=== PATIENT | male | born 1970 | race Caucasian/White ===

== ENCOUNTER 2021-07-07 10:59 | Emergency (ER) | payer SELFPAY ==
[~2021-07-07] VITALS: Ht 165.1 cm; Wt 80.3 kg
[~2021-07-07 10:59] MED LIST: LORTTAB5 PO; PRILOSEC PO
[2021-07-07] MEDS ORDERED: FAMO10TA53 PO (11:06)
[2021-07-07] MEDS ORDERED: ONDANSETRON 4MG/2ML VIAL IV ONE (12:50)
[2021-07-07] MEDS ORDERED: KETOROLAC 30 MG/ML 1ML VIAL IV ONE (12:50)
[2021-07-07 13:29] LABS: BASO # 0.1 10^3/uL (0.0-0.2); BASO % 0.6 % (0.0-1.0); EOS # 0.1 10^3/uL (0.0-0.5); EOS % 1.3 % (0.0-3.0); HEMATOCRIT 46.1 % (42.0-52.0); HEMOGLOBIN 15.4 g/dl (13.5-17.5); LYMPH # 1.3 10^3/uL (1.5-5.0); LYMPH % 13.6 % (24.0-44.0); MEAN CORPUSCULAR HEMOGLOBIN 27.6 pg (27.0-33.0); MEAN CORPUSCULAR HGB CONC 33.4 g/dl (32.0-36.5); MEAN CORPUSCULAR VOLUME 82.8 fl (80.0-96.0); MONO # 0.9 10^3/uL (0.0-0.8); MONO % 9.2 % (2.0-8.0); NEUTROPHILS # 7.1 10^3/uL (1.5-8.5); PLATELET COUNT, AUTOMATED 323 10^3/uL (150-450); RED BLOOD COUNT 5.57 10^6/uL (4.30-6.10); WHITE BLOOD COUNT 9.5 10^3/uL (4.0-10.0)
[2021-07-07 13:57] LABS: ERYTHROCYTE SEDIMENTATION RATE 2 mm/hr (0-20)
[2021-07-07 14:00] LABS: ALBUMIN 4.1 GM/DL (3.2-5.2); ALT/SGPT 34 U/L (12-78); BILIRUBIN,DIRECT 0.1 MG/DL (0.0-0.2); BILIRUBIN,TOTAL 0.6 MG/DL (0.2-1.0); BLOOD UREA NITROGEN 17 MG/DL (7-18); CALCIUM LEVEL 9.8 MG/DL (8.5-10.1); CARBON DIOXIDE LEVEL 27 MEQ/L (21-32); CHLORIDE LEVEL 108 MEQ/L (98-107); CREATININE FOR GFR 0.92 MG/DL (0.70-1.30); GLOMERULAR FILTRATION RATE > 60.0 (>56); GLUCOSE, FASTING 80 MG/DL (70-100); LIPASE 203 U/L (73-393); POTASSIUM SERUM 3.9 MEQ/L (3.5-5.1); SODIUM LEVEL 141 MEQ/L (136-145); TOTAL PROTEIN 7.4 GM/DL (6.4-8.2)
[2021-07-07] MEDS ORDERED: ISOVUE-370 76% 100ML VIAL As Ordered ONE (14:33)
[2021-07-07] MEDS ORDERED: ONDA4TAB6 PO (15:55)
[2021-07-07] MEDS ORDERED: KETO10TAB PO (16:03)
[2021-07-07 16:32] VITALS: BP 123/81
== END 2021-07-07 16:39 | disposition home or self-care (01) ==
LOC: M ED 10:59
DX: K86.9 Disease of pancreas, unspecified (principal); R10.9 Unspecified abdominal pain; R11.0 Nausea
CPT/HCPCS: 74177; 80048; 80076; 83690; 85025; 85652; 86140; 96374; 96375; 99284; J1885; J2405; Q9967

== ENCOUNTER → 2021-09-20 | Outpatient (CLI) | payer OTHER, SELFPAY ==
[~2021-09-20] MED LIST changes: +FAMO10TA53 PO; +KETO10TAB PO; +NAPR-885 PO; +OMEP40CA5 PO; +ONDA4TAB6 PO
== END ==
LOC: M LABSMTC 09:09
PROVIDERS: ATTEND Anesthesiology
DX: Z01.812 Encounter for preprocedural laboratory examination (principal)

== ENCOUNTER 2021-09-24 08:32 | Day surgery (SDC) | payer OTHER ==
[~2021-09-24] VITALS: Ht 172.7 cm; Wt 82.6 kg
[~2021-09-24 08:32] MED LIST changes: +NS 1,000 ML IV ONE
[2021-09-24] MEDS ORDERED: fentaNYL 100 MCG/2 ML INJECTION As Ordered ONE (09:08)
[2021-09-24] MEDS ORDERED: propofoL 200 MG/20 ML VIAL As Ordered ONE (09:36)
[2021-09-24] MEDS ORDERED: LIDOCAINE 2% INJ 100 MG/5 ML SYRINGE As Ordered ONE (09:36)
[2021-09-24 10:02] VITALS: BP 116/76
== END 2021-09-24 10:04 | disposition home or self-care (01) ==
LOC: M OPP 08:32
PROVIDERS: ATTEND Surgery
DX: R10.84 Generalized abdominal pain (principal); K59.00 Constipation, unspecified; R12 Heartburn; Z79.1 Long term (current) use of non-steroidal anti-inflammatories (NSAID); Z87.891 Personal history of nicotine dependence
CPT/HCPCS: 43235; 45378; J3010

== ENCOUNTER → 2021-10-20 | Outpatient (CLI) | payer OTHER ==
[~2021-10-20] MED LIST changes: -NS 1,000 ML IV ONE
[2021-10-20 18:10] LABS: CA19-9 TUMOR MARKER,CARBOHYDRA 247.8 U/ML (<35.0)
== END ==
LOC: M LAB 14:47
PROVIDERS: ATTEND Surgery
DX: R10.84 Generalized abdominal pain (principal); K86.2 Cyst of pancreas

== ENCOUNTER → 2022-01-11 | Outpatient (CLI) | payer OTHER ==
[~2022-01-11] MED LIST changes: +OMEP-405 PO
== END ==
LOC: M LABSMTC 09:07
PROVIDERS: ATTEND Anesthesiology
DX: Z01.818 Encounter for other preprocedural examination (principal); Z11.52 Encounter for screening for COVID-19

== ENCOUNTER → 2022-01-13 | Outpatient (CLI) | payer OTHER ==
[~2022-01-13] MED LIST changes: +ACET650T15 PO; +LIDOCAINE 1% MDV 20ML VIAL As Ordered ONE; +LOPE1CAP5 PO; +MIDAZOLAM INJ 2MG/2ML VIAL (J2250 PER 1MG) As Ordered ONE; +NS 1,000 ML IV SCH; +PROC10TA5 PO; +PROMETHAZINE 25MG/ML 1ML VIAL As Ordered ONE; +ceFAZolin 2 GM/D5W 50 ML IV BAG (J0690 PER 500MG) As Ordered ONE; +ceFAZolin SOD 2 GM in IV 1 EA IV ONE; +diphenhydrAMINE 50MG/ML VIAL (J1200) As Ordered ONE; +fentaNYL 100 MCG/2 ML INJECTION As Ordered ONE
[2022-01-13 11:45] VITALS: BP 114/75
== END ==
LOC: M IRPRO 08:43
PROVIDERS: ATTEND Internal Medicine Hematology & Oncology
DX: C25.9 Malignant neoplasm of pancreas, unspecified (principal)
CPT/HCPCS: 36561; 99152; 99153; C1769; C1788; C1894; J0690; J1200; J1642; J1644; J2250; J3010

== ENCOUNTER → 2022-02-23 | Outpatient (POV) | payer OTHER ==
[~2022-02-23] VITALS: Ht 172.7 cm; Wt 75.4 kg
[~2022-02-23] MED LIST changes: +GABA-282 PO; +LIDO1CRE42 TOP; -LIDOCAINE 1% MDV 20ML VIAL As Ordered ONE; -MIDAZOLAM INJ 2MG/2ML VIAL (J2250 PER 1MG) As Ordered ONE; -NS 1,000 ML IV SCH; +OMEP40CA5; -PROMETHAZINE 25MG/ML 1ML VIAL As Ordered ONE; -ceFAZolin 2 GM/D5W 50 ML IV BAG (J0690 PER 500MG) As Ordered ONE; -ceFAZolin SOD 2 GM in IV 1 EA IV ONE; -diphenhydrAMINE 50MG/ML VIAL (J1200) As Ordered ONE; -fentaNYL 100 MCG/2 ML INJECTION As Ordered ONE
[2022-02-23 13:45] VITALS: BP 156/89
== END ==
LOC: M IRPOV 13:40
PROVIDERS: ATTEND Radiology Diagnostic Radiology
DX: Z45.2 Encounter for adjustment and management of vascular access device (principal)

== ENCOUNTER → 2022-03-15 | Outpatient (CLI) | payer OTHER ==
[~2022-03-15] MED LIST changes: +GASTROGRAFIN SOLUTION 30ML As Ordered ONE; +ISOVUE-370 76% 100ML VIAL As Ordered ONE
== END ==
LOC: M RAD 08:43
PROVIDERS: ATTEND Internal Medicine Hematology & Oncology
DX: C25.9 Malignant neoplasm of pancreas, unspecified (principal)
CPT/HCPCS: 71260; 74177; J1642

== ENCOUNTER → 2023-02-23 | Outpatient (CLI) | payer OTHER ==
[~2023-02-23] MED LIST changes: +ASPI-531 PO; -LIDO1CRE42 TOP; +LIDO30CR18 TOP; +OMEP-173 PO
== END ==
LOC: M RAD 12:09
PROVIDERS: ATTEND Internal Medicine Medical Oncology
DX: C25.9 Malignant neoplasm of pancreas, unspecified (principal)

== ENCOUNTER → 2023-03-29 | Outpatient (CLI) | payer OTHER ==
[~2023-03-29] VITALS: Ht 172.7 cm; Wt 78.6 kg
[~2023-03-29] MED LIST changes: -GASTROGRAFIN SOLUTION 30ML As Ordered ONE; -ISOVUE-370 76% 100ML VIAL As Ordered ONE; +NORP10TA2 PO
[2023-03-29 15:05] VITALS: BP 131/84; O2SAT 97
== END ==
LOC: M PAL 15:00
PROVIDERS: ATTEND Nurse Practitioner Adult Health
DX: C25.2 Malignant neoplasm of tail of pancreas (principal); G57.93 Unspecified mononeuropathy of bilateral lower limbs; Z80.42 Family history of malignant neoplasm of prostate; Z92.21 Personal history of antineoplastic chemotherapy; Z90.5 Acquired absence of kidney; Z90.410 Acquired total absence of pancreas; Z90.89 Acquired absence of other organs; Z90.3 Acquired absence of stomach [part of]; Z79.82 Long term (current) use of aspirin; Z79.899 Other long term (current) drug therapy

== ENCOUNTER → 2023-04-25 | Outpatient (REF) | payer OTHER ==
[2023-04-25 14:57] LABS: ALKALINE PHOSPHATASE 94 U/L (46-116); ALT/SGPT 10 U/L (7.0-40); AST/SGOT 14 U/L (<34); BILIRUBIN,TOTAL 0.4 MG/DL (0.3-1.2); BLOOD UREA NITROGEN 21 MG/DL (9-23); CALCIUM LEVEL 9.8 MG/DL (8.5-10.1); CARBON DIOXIDE LEVEL 27 MMOL/L (20-31); CHLORIDE LEVEL 106 MMOL/L (98-107); CHOLESTEROL LEVEL 260 MG/DL (<200); CHOLESTEROL RISK RATIO 5.59 (<5); CREATININE FOR GFR 1.16 MG/DL (0.70-1.30); GLOMERULAR FILTRATION RATE > 60.0 (>56); GLUCOSE, FASTING 80 MG/DL (60-100); HDL CHOLESTEROL 46.5 MG/DL (>40); LDL CHOLESTEROL 187.7 MG/DL (<100); MAGNESIUM LEVEL 2.1 MG/DL (1.8-2.4); NON-HDL-C 213.5 MG/DL; POTASSIUM SERUM 5.3 MMOL/L (3.5-5.1); SODIUM LEVEL 138 MMOL/L (136-145); TOTAL PROTEIN 7.6 G/DL (5.7-8.2); TRIGLYCERIDES LEVEL 129 MG/DL (<150)
[2023-04-25 15:01] LABS: THYROID STIMULATING HORMONE 0.802 uIU/ML (0.55-4.78)
== END ==
LOC: M LAB REF 12:17
PROVIDERS: ATTEND Nurse Practitioner Family
DX: E66.3 Overweight (principal)

== ENCOUNTER → 2023-04-27 | Outpatient (CLI) | payer OTHER | LOC: M ONCR 10:32 | PROVIDERS: ATTEND General Practice | DX: C25.2 Malignant neoplasm of tail of pancreas (principal); Z71.2 Person consulting for explanation of examination or test findings; Z79.82 Long term (current) use of aspirin; Z79.899 Other long term (current) drug therapy; Z86.59 Personal history of other mental and behavioral disorders; Z87.891 Personal history of nicotine dependence; Z90.411 Acquired partial absence of pancreas; Z90.81 Acquired absence of spleen; Z90.5 Acquired absence of kidney; Z90.3 Acquired absence of stomach [part of]; Z92.21 Personal history of antineoplastic chemotherapy ==

== ENCOUNTER → 2023-04-28 | Outpatient (CLI) | payer OTHER ==
[~2023-04-28] VITALS: Ht 172.7 cm; Wt 76.2 kg
[2023-04-28 09:56] VITALS: BP 133/86; O2SAT 96
== END ==
LOC: M PAL 09:28
PROVIDERS: ATTEND Nurse Practitioner Adult Health
DX: C25.2 Malignant neoplasm of tail of pancreas (principal); G57.93 Unspecified mononeuropathy of bilateral lower limbs; Z51.5 Encounter for palliative care; Z79.82 Long term (current) use of aspirin; Z79.899 Other long term (current) drug therapy; Z80.42 Family history of malignant neoplasm of prostate; Z87.891 Personal history of nicotine dependence; Z90.5 Acquired absence of kidney; Z90.3 Acquired absence of stomach [part of]; Z90.410 Acquired total absence of pancreas; Z90.89 Acquired absence of other organs; Z92.21 Personal history of antineoplastic chemotherapy

== ENCOUNTER 2023-05-04 11:08 | Outpatient (RCR) | payer OTHER ==
[2023-05-19] MEDS ORDERED: ACET-907 PO (08:48)
[2023-05-19] MEDS ORDERED: HYDR-3713 PO (09:22)
[2023-05-27] MEDS ORDERED: CAPE1TAB2 PO (15:36)
== END 2023-05-26 ==
LOC: M ONCR 11:08
PROVIDERS: ATTEND General Practice
DX: Z51.0 Encounter for antineoplastic radiation therapy (principal); C25.2 Malignant neoplasm of tail of pancreas

== ENCOUNTER → 2023-06-08 | Outpatient (CLI) | payer OTHER ==
[~2023-06-08] VITALS: Ht 172.7 cm; Wt 75.3 kg
[~2023-06-08] MED LIST changes: +ACET-907 PO; +CAPE1TAB2 PO; +HYDR-3713 PO; +SENN-186 PO
[2023-06-08 09:49] VITALS: BP 123/80; O2SAT 98
== END ==
LOC: M PAL 09:23
PROVIDERS: ATTEND Nurse Practitioner Adult Health
DX: C25.2 Malignant neoplasm of tail of pancreas (principal); G57.93 Unspecified mononeuropathy of bilateral lower limbs; G89.3 Neoplasm related pain (acute) (chronic); Z51.5 Encounter for palliative care; Z79.82 Long term (current) use of aspirin; Z79.899 Other long term (current) drug therapy; Z80.42 Family history of malignant neoplasm of prostate; Z86.59 Personal history of other mental and behavioral disorders; Z87.891 Personal history of nicotine dependence; Z90.5 Acquired absence of kidney; Z90.3 Acquired absence of stomach [part of]; Z90.410 Acquired total absence of pancreas; Z90.89 Acquired absence of other organs; Z92.21 Personal history of antineoplastic chemotherapy

== ENCOUNTER 2023-06-12 14:55 | Observation (INO) | payer OTHER ==
[~2023-06-12] VITALS: Ht 172.7 cm; Wt 67.7 kg
[2023-06-12] MEDS: LR 1,000 ML IV ONE ×2 (16:02→16:48)
[2023-06-12 16:30] LABS: BASO % 0.2 % (0.0-1.0); HEMOGLOBIN 14.3 g/dl (13.5-17.5); LYMPH # 0.7 10^3/uL (1.5-5.0); MEAN CORPUSCULAR HEMOGLOBIN 26.5 pg (27.0-33.0); MEAN CORPUSCULAR VOLUME 77.9 fl (80.0-96.0); MONO # 0.9 10^3/uL (0.0-0.8); MONO % 6.4 % (2.0-8.0); NEUTROPHILS # 12.9 10^3/uL (1.5-8.5); PLATELET COUNT, AUTOMATED 623 10^3/uL (150-450); RED BLOOD COUNT 5.39 10^6/uL (4.30-6.10); WHITE BLOOD COUNT 14.7 10^3/uL (4.0-10.0)
[2023-06-12] MEDS: PROMETHAZINE 25MG/ML 1ML VIAL IV ONE (16:47)
[2023-06-12] MEDS: MORPHINE 4 MG/ML 1ML VIAL IV ONE (16:48)
[2023-06-12 16:54] LABS: LIPASE 31 U/L (12-53)
[2023-06-12 16:56] LABS: ALBUMIN 4.5 G/DL (3.2-5.2); ALKALINE PHOSPHATASE 112 U/L (46-116); ALT/SGPT 13 U/L (7.0-40); AST/SGOT 13 U/L (<34); BILIRUBIN,DIRECT 0.2 MG/DL (<0.4); BILIRUBIN,TOTAL 0.8 MG/DL (0.3-1.2); BLOOD UREA NITROGEN 36 MG/DL (9-23); CALCIUM LEVEL 10.2 MG/DL (8.5-10.1); CARBON DIOXIDE LEVEL 23 MMOL/L (20-31); CHLORIDE LEVEL 105 MMOL/L (98-107); CREATININE FOR GFR 1.18 MG/DL (0.70-1.30); GLOMERULAR FILTRATION RATE > 60.0 (>56); GLUCOSE, FASTING 163 MG/DL (60-100); SODIUM LEVEL 142 MMOL/L (136-145); TOTAL PROTEIN 7.9 G/DL (5.7-8.2)
[2023-06-12 17:01] LABS: RSV AMPLIFICATION NEGATIVE (NEGATIVE)
[2023-06-12 17:52] LABS: PROCALCITONIN <0.04 ng/ml
[2023-06-12] MEDS ORDERED: HYDR-4571 PO (17:56)
[2023-06-12] MEDS ORDERED: DESI10TA28 PO (17:56)
[2023-06-12] MEDS ORDERED: ECOT81TA5 PO (17:56)
[2023-06-12] MEDS ORDERED: GABA600T4 PO (17:56)
[2023-06-12] MEDS ORDERED: FAMO10TA52 PO (17:56)
[2023-06-12] MEDS ORDERED: KCL 40MEQ IN D5/0.45NS 1000ML 1,000 ML IV SCH (18:00)
[2023-06-12] MEDS ORDERED: HOME MED LIST COMPLETE! XX SCH (18:00)
[2023-06-12 18:11] LABS: MAGNESIUM LEVEL 2.1 MG/DL (1.8-2.4)
[2023-06-12] MEDS: NS 1,000 ML IV SCH (18:12)
[2023-06-12] MEDS: MAG SULF 1GM/100ML (MAG RUN) 1 GM in IV 1 EA IV ONE (18:33)
[2023-06-12] MEDS: CALCIUM GLUCONATE 1,000 MG in D5W MINI-BAG PLUS 100 ML IV ONE (20:09)
[2023-06-12] MEDS: METOPROLOL TART 25 MG TABLET PO SCH (20:10)
[2023-06-12 22:00] VITALS: BP 153/93; TEMP 98; O2SAT 97
[2023-06-12] MEDS: GABAPENTIN 300 MG CAP PO SCH (23:00)
[2023-06-12] MEDS: LR 1,000 ML IV SCH (23:05)
[2023-06-13 06:13] VITALS: BP 138/86; TEMP 97; O2SAT 98
[2023-06-13 06:59] LABS: PREALBUMIN 22.7 MG/DL (10.0-40.0)
[2023-06-13] MEDS: ASPIRIN 81MG ENTERIC TABLET PO SCH (08:05)
[2023-06-13 08:59] LABS: ALBUMIN 3.4 G/DL (3.2-5.2); BLOOD UREA NITROGEN 27 MG/DL (9-23); CALCIUM LEVEL 9.3 MG/DL (8.5-10.1); CARBON DIOXIDE LEVEL 26 MMOL/L (20-31); CHLORIDE LEVEL 110 MMOL/L (98-107); CREATININE FOR GFR 1.01 MG/DL (0.70-1.30); GLOMERULAR FILTRATION RATE > 60.0 (>56); GLUCOSE, FASTING 101 MG/DL (60-100); MAGNESIUM LEVEL 2.1 MG/DL (1.8-2.4); POTASSIUM SERUM 4.2 MMOL/L (3.5-5.1); SODIUM LEVEL 143 MMOL/L (136-145)
[2023-06-13] MEDS ORDERED: LOPERAMIDE 2 MG CAPLET PO ONE (09:00)
[2023-06-13 09:04] LABS: BASO # 0.1 10^3/uL (0.0-0.2); BASO % 0.4 % (0.0-1.0); EOS % 0.1 % (0.0-3.0); HEMATOCRIT 35.6 % (42.0-52.0); LYMPH # 0.9 10^3/uL (1.5-5.0); LYMPH % 5.5 % (24.0-44.0); MEAN CORPUSCULAR HGB CONC 32.9 g/dl (32.0-36.5); MONO % 12.4 % (2.0-8.0); NEUTROPHILS # 13.2 10^3/uL (1.5-8.5); NEUTROPHILS % 81.2 % (36.0-66.0); RED BLOOD COUNT 4.34 10^6/uL (4.30-6.10); WHITE BLOOD COUNT 16.2 10^3/uL (4.0-10.0)
[2023-06-13 09:09] LABS: HEMOGLOBIN 11.7 g/dl (13.5-17.5); PLATELET COUNT, AUTOMATED 507 10^3/uL (150-450)
[2023-06-13] MEDS ORDERED: LOPERAMIDE 2 MG CAPLET PO PRN (10:00)
[2023-06-13 10:50] LABS: CLOSTRIDIUM DIFFICILE PCR NEGATIVE (NEGATIVE)
[2023-06-13] MEDS: MEGESTROL 400MG 10ML SUSP ORAL SYRINGE *DRAW UP EXACT DOSE PO SCH (11:06)
[2023-06-13] MEDS: CAPECITABINE 500 MG PO SCH (11:06)
[2023-06-13] MEDS: LOPERAMIDE 2 MG CAPLET PO ONE (11:18)
[2023-06-13] MEDS: ONDANSETRON 4MG 2ML VIAL IV PRN (12:47)
[2023-06-13 14:00] VITALS: BP 145/90; TEMP 98.1; O2SAT 96
[2023-06-13] MEDS: NORCO, ANEXSIA 5/325MG TABLET (HYDROcodone/ACETAMINOPHEN) PO PRN (19:25)
[2023-06-13 20:44] VITALS: BP 142/97; TEMP 98.1; O2SAT 96
[2023-06-13 23:48] VITALS: BP 141/93; TEMP 97.9; O2SAT 97
[2023-06-14 05:27] VITALS: BP 140/95; TEMP 98.1; O2SAT 96
[2023-06-14 07:55] VITALS: BP 133/76; TEMP 97.5; O2SAT 95
[2023-06-14 14:00] VITALS: BP 135/92; TEMP 97.9; O2SAT 99
[2023-06-14] MEDS: ONDANSETRON 4MG TAB PO PRN (17:34)
[2023-06-14] MEDS ORDERED: PILL CUTTER 1 EACH XX PRN (20:10)
[2023-06-14 20:28] VITALS: BP 135/81; TEMP 97.7; O2SAT 98
[2023-06-14] MEDS: FAMOTIDINE 20 MG TAB PO SCH (20:29)
[2023-06-15 05:00] VITALS: BP 139/92; TEMP 97.9; O2SAT 97
[2023-06-15 06:28] LABS: HEMATOCRIT 39.4 % (42.0-52.0); HEMOGLOBIN 13.1 g/dl (13.5-17.5); MEAN CORPUSCULAR HGB CONC 33.2 g/dl (32.0-36.5); MEAN CORPUSCULAR VOLUME 81.2 fl (80.0-96.0); PLATELET COUNT, AUTOMATED 491 10^3/uL (150-450); RED BLOOD COUNT 4.85 10^6/uL (4.30-6.10); WHITE BLOOD COUNT 13.3 10^3/uL (4.0-10.0)
[2023-06-15 06:53] LABS: ALBUMIN 3.6 G/DL (3.2-5.2); ALKALINE PHOSPHATASE 99 U/L (46-116); ALT/SGPT < 9 U/L (7.0-40); AST/SGOT 12 U/L (<34); BILIRUBIN,TOTAL 0.8 MG/DL (0.3-1.2); BLOOD UREA NITROGEN 17 MG/DL (9-23); CALCIUM LEVEL 9.3 MG/DL (8.5-10.1); CARBON DIOXIDE LEVEL 25 MMOL/L (20-31); CHLORIDE LEVEL 106 MMOL/L (98-107); CREATININE FOR GFR 0.96 MG/DL (0.70-1.30); GLOMERULAR FILTRATION RATE > 60.0 (>56); GLUCOSE, FASTING 89 MG/DL (60-100); POTASSIUM SERUM 4.1 MMOL/L (3.5-5.1); SODIUM LEVEL 139 MMOL/L (136-145); TOTAL PROTEIN 6.6 G/DL (5.7-8.2)
[2023-06-15 08:46] VITALS: BP 139/96
[2023-06-15] MEDS: lisinopriL 5 MG TAB PO SCH (08:46)
[2023-06-15] MEDS ORDERED: LISI5TAB11 PO (09:34)
[2023-06-15] MEDS ORDERED: ONDA-83 PO (09:34)
[2023-06-15] MEDS ORDERED: LOPE2CA PO (09:34)
== END 2023-06-15 11:15 | disposition home or self-care (01) ==
LOC: M ED 14:55 → M ED INP 14:56 → ENRESERV 20:03 → M MSPAV 21:50
PROVIDERS: ADMIT General Practice; ATTEND Internal Medicine
DX: E86.0 Dehydration (principal); R11.2 Nausea with vomiting, unspecified; R19.7 Diarrhea, unspecified; C25.1 Malignant neoplasm of body of pancreas; R65.10 Systemic inflammatory response syndrome (SIRS) of non-infectious origin without acute organ dysfunction; I10 Essential (primary) hypertension; D84.9 Immunodeficiency, unspecified; D75.838 Other thrombocytosis; R71.8 Other abnormality of red blood cells; E87.20 Acidosis, unspecified; R63.0 Anorexia; R00.0 Tachycardia, unspecified; R62.7 Adult failure to thrive; K21.9 Gastro-esophageal reflux disease without esophagitis; F10.11 Alcohol abuse, in remission; Z90.411 Acquired partial absence of pancreas; Z90.81 Acquired absence of spleen; Z90.5 Acquired absence of kidney; Z90.89 Acquired absence of other organs; Z90.3 Acquired absence of stomach [part of]; Z82.49 Family history of ischemic heart disease and other diseases of the circulatory system; Z80.42 Family history of malignant neoplasm of prostate; Z79.899 Other long term (current) drug therapy; Z79.82 Long term (current) use of aspirin
CPT/HCPCS: 71046; 74176; 77336; 77386; 80047; 80048; 80053; 80076; 81001; 82040; 83605; 83690; 83735; 84134; 84145; 85025; 85027; 86140; 87040; 87324; 87507; 87631; 93005; 93041; 96361; 96365; 96366; 96367; 96375; 96376; 97161; 99285; J0612; J2405; J2550; J3475

== ENCOUNTER 2023-06-24 10:45 | Outpatient (RCR) | payer OTHER ==
[~2023-06-24 10:45] MED LIST changes: +DESI10TA28 PO; +ECOT81TA5 PO; +FAMO10TA52 PO; +GABA600T4 PO; +HYDR-4571 PO; +LISI5TAB11 PO; +LOPE2CA PO; +ONDA-83 PO
[2023-06-24] MEDS ORDERED: OLAN1TAB16 PO (13:54)
== END 2023-06-26 ==
LOC: M ONCR 10:45
PROVIDERS: ATTEND General Practice
DX: Z51.0 Encounter for antineoplastic radiation therapy (principal); C25.2 Malignant neoplasm of tail of pancreas

== ENCOUNTER 2023-07-11 19:48 | Emergency (ER) | payer OTHER ==
[~2023-07-11] VITALS: Ht 172.7 cm; Wt 68.9 kg
[~2023-07-11 19:48] MED LIST changes: +OLAN1TAB16 PO; +SENN-83
[2023-07-11 19:49] VITALS: TEMP 98.6
[2023-07-11] MEDS: ONDANSETRON 4MG 2ML VIAL IV ONE (20:12)
[2023-07-11] MEDS: dexAMETHasone 20MG/5ML VIAL IV ONE (20:12)
[2023-07-11] MEDS: NS 1,000 ML IV ONE (20:13)
[2023-07-11 20:29] LABS: BASO # 0.1 10^3/uL (0.0-0.2); BASO % 0.5 % (0.0-1.0); EOS # 0.1 10^3/uL (0.0-0.5); EOS % 0.9 % (0.0-3.0); HEMATOCRIT 43.4 % (42.0-52.0); LYMPH # 0.5 10^3/uL (1.5-5.0); LYMPH % 3.6 % (24.0-44.0); MEAN CORPUSCULAR HEMOGLOBIN 26.7 pg (27.0-33.0); MEAN CORPUSCULAR HGB CONC 32.3 g/dl (32.0-36.5); MEAN CORPUSCULAR VOLUME 82.8 fl (80.0-96.0); MONO # 1.8 10^3/uL (0.0-0.8); MONO % 12.8 % (2.0-8.0); NEUTROPHILS # 11.2 10^3/uL (1.5-8.5); NEUTROPHILS % 81.5 % (36.0-66.0); PLATELET COUNT, AUTOMATED 643 10^3/uL (150-450); RED BLOOD COUNT 5.24 10^6/uL (4.30-6.10); WHITE BLOOD COUNT 13.8 10^3/uL (4.0-10.0)
[2023-07-11 20:51] LABS: LIPASE 31 U/L (12-53)
[2023-07-11 20:53] LABS: ALBUMIN 3.3 G/DL (3.2-5.2); ALKALINE PHOSPHATASE 164 U/L (46-116); ALT/SGPT 19 U/L (7.0-40); AST/SGOT 17 U/L (<34); BILIRUBIN,TOTAL 0.4 MG/DL (0.3-1.2); BLOOD UREA NITROGEN 18 MG/DL (9-23); CALCIUM LEVEL 9.9 MG/DL (8.5-10.1); CARBON DIOXIDE LEVEL 27 MMOL/L (20-31); CHLORIDE LEVEL 102 MMOL/L (98-107); CREATININE FOR GFR 1.12 MG/DL (0.70-1.30); GLOMERULAR FILTRATION RATE > 60.0 (>56); GLUCOSE, FASTING 111 MG/DL (60-100); MAGNESIUM LEVEL 2.1 MG/DL (1.8-2.4); POTASSIUM SERUM 4.4 MMOL/L (3.5-5.1); SODIUM LEVEL 139 MMOL/L (136-145); TOTAL PROTEIN 7.6 G/DL (5.7-8.2)
[2023-07-11] MEDS ORDERED: ISOVUE-370 76% 100ML VIAL As Ordered ONE (21:24)
[2023-07-12] MEDS: METOCLOPRAMIDE INJ 10MG/2ML VIAL IV ONE (01:26)
[2023-07-12 02:00] VITALS: BP 132/92; O2SAT 96
[2023-07-12] MEDS ORDERED: DEXA6TAB PO (02:02)
[2023-07-13] MEDS ORDERED: DEXA2TA PO (12:17)
== END 2023-07-12 02:16 | disposition home or self-care (01) ==
LOC: M ED 19:48
DX: R11.2 Nausea with vomiting, unspecified (principal); T18.108A Unspecified foreign body in esophagus causing other injury, initial encounter; K59.00 Constipation, unspecified; I10 Essential (primary) hypertension; K21.9 Gastro-esophageal reflux disease without esophagitis; Z79.1 Long term (current) use of non-steroidal anti-inflammatories (NSAID); Z79.899 Other long term (current) drug therapy
CPT/HCPCS: 70490; 80053; 83690; 83735; 85025; 96374; 96375; 99284; J1100; J2405; J2765

== ENCOUNTER → 2023-07-13 | Outpatient (CLI) | payer OTHER ==
[~2023-07-13] VITALS: Ht 172.7 cm; Wt 68.7 kg
[~2023-07-13] MED LIST changes: +DEXA2TA PO; +DEXA6TAB PO
[2023-07-13 11:31] VITALS: BP 136/102; O2SAT 98
== END ==
LOC: M PAL 10:42
PROVIDERS: ATTEND Nurse Practitioner Adult Health
DX: G89.3 Neoplasm related pain (acute) (chronic) (principal); G57.93 Unspecified mononeuropathy of bilateral lower limbs; G62.9 Polyneuropathy, unspecified; R63.0 Anorexia; C25.2 Malignant neoplasm of tail of pancreas; R53.83 Other fatigue; Z51.5 Encounter for palliative care; Z79.82 Long term (current) use of aspirin; Z79.891 Long term (current) use of opiate analgesic; Z79.899 Other long term (current) drug therapy; Z80.42 Family history of malignant neoplasm of prostate; Z86.59 Personal history of other mental and behavioral disorders; Z87.891 Personal history of nicotine dependence; Z90.3 Acquired absence of stomach [part of]; Z90.5 Acquired absence of kidney; Z90.81 Acquired absence of spleen; Z90.410 Acquired total absence of pancreas; Z90.49 Acquired absence of other specified parts of digestive tract; Z90.89 Acquired absence of other organs; Z92.21 Personal history of antineoplastic chemotherapy; Z92.3 Personal history of irradiation

== ENCOUNTER 2023-07-18 10:45 | Outpatient (RCR) | payer OTHER ==
[2023-07-21] MEDS ORDERED: ECOT81TA5 PO (11:03)
[2023-07-21] MEDS ORDERED: ONDA-83 PO (15:54)
== END 2023-07-26 ==
LOC: M ONCR 10:45
PROVIDERS: ATTEND General Practice
DX: Z51.0 Encounter for antineoplastic radiation therapy (principal); C25.2 Malignant neoplasm of tail of pancreas

== ENCOUNTER → 2023-07-19 | Outpatient (CLI) | payer OTHER | LOC: M ONCM 07:47 | PROVIDERS: ATTEND Dietitian, Registered | DX: C25.2 Malignant neoplasm of tail of pancreas (principal); Z71.3 Dietary counseling and surveillance; Z68.23 Body mass index [BMI] 23.0-23.9, adult ==

== ENCOUNTER → 2023-08-03 | Outpatient (CLI) | payer OTHER ==
[~2023-08-03] VITALS: Ht 172.7 cm; Wt 73.0 kg
[~2023-08-03] MED LIST changes: -SENN-83; +SENN-83 PO
[2023-08-03 08:57] VITALS: BP 141/87; TEMP 97.1; O2SAT 99
== END ==
LOC: M PAL 08:53
PROVIDERS: ATTEND Nurse Practitioner Adult Health
DX: C25.2 Malignant neoplasm of tail of pancreas (principal); G57.93 Unspecified mononeuropathy of bilateral lower limbs; G89.3 Neoplasm related pain (acute) (chronic); R63.0 Anorexia; Z51.5 Encounter for palliative care; Z79.52 Long term (current) use of systemic steroids; Z79.82 Long term (current) use of aspirin; Z79.899 Other long term (current) drug therapy; Z80.42 Family history of malignant neoplasm of prostate; Z86.59 Personal history of other mental and behavioral disorders; Z87.891 Personal history of nicotine dependence; Z90.5 Acquired absence of kidney; Z90.3 Acquired absence of stomach [part of]; Z90.410 Acquired total absence of pancreas; Z90.89 Acquired absence of other organs; Z92.21 Personal history of antineoplastic chemotherapy; Z92.3 Personal history of irradiation

== ENCOUNTER → 2023-08-30 | Outpatient (CLI) | payer OTHER ==
[~2023-08-30] VITALS: Ht 172.7 cm; Wt 68.4 kg
[~2023-08-30] MED LIST changes: +ONDA-282 PO; -ONDA4TAB6 PO
[2023-08-30 10:36] VITALS: BP 115/70; O2SAT 98
== END ==
LOC: M PAL 10:24
PROVIDERS: ATTEND Nurse Practitioner Adult Health
DX: C25.2 Malignant neoplasm of tail of pancreas (principal); G57.83 Other specified mononeuropathies of bilateral lower limbs; G89.3 Neoplasm related pain (acute) (chronic); R63.0 Anorexia; Z51.5 Encounter for palliative care; Z79.82 Long term (current) use of aspirin; Z79.899 Other long term (current) drug therapy; Z80.42 Family history of malignant neoplasm of prostate; Z86.59 Personal history of other mental and behavioral disorders; Z87.891 Personal history of nicotine dependence; Z90.5 Acquired absence of kidney; Z90.3 Acquired absence of stomach [part of]; Z90.410 Acquired total absence of pancreas; Z90.89 Acquired absence of other organs; Z92.21 Personal history of antineoplastic chemotherapy; Z92.3 Personal history of irradiation; Z79.891 Long term (current) use of opiate analgesic

== ENCOUNTER → 2023-09-19 | Outpatient (CLI) | payer OTHER ==
[~2023-09-19] MED LIST changes: +GASTROGRAFIN SOLUTION 30ML ONE; +ISOVUE-370 76% 100ML VIAL ONE; +MS C15TA8 PO
== END ==
LOC: M PLAIMG 08:14
PROVIDERS: ATTEND Internal Medicine Medical Oncology
DX: C25.9 Malignant neoplasm of pancreas, unspecified (principal)

== ENCOUNTER → 2023-10-12 | Outpatient (CLI) | payer OTHER ==
[~2023-10-12] VITALS: Ht 172.7 cm; Wt 63.2 kg
[~2023-10-12] MED LIST changes: +CITA10TA7 PO; +DEXA4TA PO; -GASTROGRAFIN SOLUTION 30ML ONE; -ISOVUE-370 76% 100ML VIAL ONE; +MIRA3350 PO; +MORP15TA2 PO; +MORP30TASA PO; +ONDA-284 PO; +VITA200016 PO
[2023-10-12 10:22] VITALS: BP 138/94; O2SAT 97
== END ==
LOC: M PAL 10:07
PROVIDERS: ATTEND Nurse Practitioner Adult Health
DX: C25.2 Malignant neoplasm of tail of pancreas (principal); G57.83 Other specified mononeuropathies of bilateral lower limbs; G89.3 Neoplasm related pain (acute) (chronic); G62.9 Polyneuropathy, unspecified; R63.0 Anorexia; K59.00 Constipation, unspecified; Z51.5 Encounter for palliative care; Z79.82 Long term (current) use of aspirin; Z79.891 Long term (current) use of opiate analgesic; Z79.899 Other long term (current) drug therapy; Z80.42 Family history of malignant neoplasm of prostate; Z86.59 Personal history of other mental and behavioral disorders; Z87.891 Personal history of nicotine dependence; Z90.5 Acquired absence of kidney; Z90.3 Acquired absence of stomach [part of]; Z90.410 Acquired total absence of pancreas; Z90.81 Acquired absence of spleen; Z90.89 Acquired absence of other organs; Z92.21 Personal history of antineoplastic chemotherapy; Z92.3 Personal history of irradiation

== ENCOUNTER → 2023-10-17 | Outpatient (CLI) | payer OTHER ==
[~2023-10-17] MED LIST changes: -CITA10TA7 PO; -DEXA4TA PO; -MORP15TA2 PO; -MORP30TASA PO; -ONDA-284 PO; -VITA200016 PO
== END ==
LOC: M PLARAD 09:37
PROVIDERS: ATTEND Internal Medicine Medical Oncology
DX: C25.8 Malignant neoplasm of overlapping sites of pancreas (principal)
CPT/HCPCS: 78815; A9552

== ENCOUNTER → 2023-11-16 | Outpatient (CLI) | payer OTHER ==
[~2023-11-16] VITALS: Ht 172.7 cm; Wt 61.2 kg
[~2023-11-16] MED LIST changes: +CITA10TA7 PO; +DEXA4TA PO; +MORP15TA2 PO; +MORP30TASA PO; +ONDA-284 PO; +VITA200016 PO
[2023-11-16 10:51] VITALS: BP 160/107; O2SAT 99
== END ==
LOC: M PAL 10:12
PROVIDERS: ATTEND Nurse Practitioner Adult Health
DX: C25.2 Malignant neoplasm of tail of pancreas (principal); G57.83 Other specified mononeuropathies of bilateral lower limbs; G89.3 Neoplasm related pain (acute) (chronic); G62.9 Polyneuropathy, unspecified; R63.0 Anorexia; K59.00 Constipation, unspecified; Z51.5 Encounter for palliative care; Z79.82 Long term (current) use of aspirin; Z79.891 Long term (current) use of opiate analgesic; Z79.899 Other long term (current) drug therapy; Z80.42 Family history of malignant neoplasm of prostate; Z86.59 Personal history of other mental and behavioral disorders; Z87.891 Personal history of nicotine dependence; Z90.5 Acquired absence of kidney; Z90.3 Acquired absence of stomach [part of]; Z90.410 Acquired total absence of pancreas; Z90.81 Acquired absence of spleen; Z90.89 Acquired absence of other organs; Z92.21 Personal history of antineoplastic chemotherapy; Z92.3 Personal history of irradiation

== ENCOUNTER → 2023-12-01 | Outpatient (CLI) | payer OTHER ==
[~2023-12-01] VITALS: Ht 172.7 cm; Wt 65.6 kg
[~2023-12-01] MED LIST changes: +BACL10TA2 PO; +GABA-1490 PO; -GABA600T4 PO; +MORP-69 PO; +MORP1TAB21 PO; +SENN-187 PO; -SENN-83 PO
[2023-12-01 11:50] VITALS: BP 112/66; O2SAT 98
== END ==
LOC: M PAL 10:52
PROVIDERS: ATTEND Nurse Practitioner Adult Health
DX: C25.2 Malignant neoplasm of tail of pancreas (principal); G89.3 Neoplasm related pain (acute) (chronic); G62.9 Polyneuropathy, unspecified; R63.0 Anorexia; R06.6 Hiccough; Z51.5 Encounter for palliative care; Z79.82 Long term (current) use of aspirin; Z79.891 Long term (current) use of opiate analgesic; Z79.899 Other long term (current) drug therapy; Z80.42 Family history of malignant neoplasm of prostate; Z86.59 Personal history of other mental and behavioral disorders; Z87.891 Personal history of nicotine dependence; Z90.5 Acquired absence of kidney; Z90.3 Acquired absence of stomach [part of]; Z90.410 Acquired total absence of pancreas; Z90.81 Acquired absence of spleen; Z90.89 Acquired absence of other organs; Z92.21 Personal history of antineoplastic chemotherapy; Z92.3 Personal history of irradiation

== ENCOUNTER → 2023-12-15 | Outpatient (CLI) | payer OTHER ==
[~2023-12-15] VITALS: Ht 172.7 cm; Wt 63.1 kg
[2023-12-15 08:06] VITALS: BP 151/102; O2SAT 98
== END ==
LOC: M PAL 07:50
PROVIDERS: ATTEND Nurse Practitioner Adult Health
DX: C25.2 Malignant neoplasm of tail of pancreas (principal); G89.3 Neoplasm related pain (acute) (chronic); G62.9 Polyneuropathy, unspecified; R63.0 Anorexia; R06.6 Hiccough; Z51.5 Encounter for palliative care; Z79.82 Long term (current) use of aspirin; Z79.891 Long term (current) use of opiate analgesic; Z79.899 Other long term (current) drug therapy; Z80.42 Family history of malignant neoplasm of prostate; Z86.59 Personal history of other mental and behavioral disorders; Z87.891 Personal history of nicotine dependence; Z90.5 Acquired absence of kidney; Z90.3 Acquired absence of stomach [part of]; Z90.410 Acquired total absence of pancreas; Z90.81 Acquired absence of spleen; Z90.89 Acquired absence of other organs; Z92.21 Personal history of antineoplastic chemotherapy; Z92.3 Personal history of irradiation

== ENCOUNTER → 2023-12-15 | Outpatient (CLI) | payer OTHER ==
[~2023-12-15] MED LIST changes: +GABA-1172 PO; -GABA-282 PO
== END ==
LOC: M ONCR 08:40
PROVIDERS: ATTEND General Practice
DX: C25.2 Malignant neoplasm of tail of pancreas (principal); Z90.411 Acquired partial absence of pancreas; Z90.49 Acquired absence of other specified parts of digestive tract; Z90.5 Acquired absence of kidney; Z92.21 Personal history of antineoplastic chemotherapy; Z92.3 Personal history of irradiation; Z79.899 Other long term (current) drug therapy

== ENCOUNTER → 2023-12-27 | Outpatient (CLI) | payer OTHER ==
[~2023-12-27] MED LIST changes: +E-Z-GAS II EFFERVESCENT PACKET (SODIUM BICARB./CITRIC ACID/SIMETHICONE) As Ordered ONE; +E-Z-HD 98% w/w 340GM SUSP BTL As Ordered ONE; +E-Z-PAQUE 96% w/w SUSP 176GM BTL As Ordered ONE; -GABA-1172 PO; +GABA-282 PO
== END ==
LOC: M RAD 08:05
PROVIDERS: ATTEND Internal Medicine Medical Oncology
DX: C25.9 Malignant neoplasm of pancreas, unspecified (principal)

== ENCOUNTER → 2024-01-17 | Outpatient (CLI) | payer OTHER ==
[~2024-01-17] VITALS: Ht 172.7 cm; Wt 62.1 kg
[~2024-01-17] MED LIST changes: -E-Z-GAS II EFFERVESCENT PACKET (SODIUM BICARB./CITRIC ACID/SIMETHICONE) As Ordered ONE; -E-Z-HD 98% w/w 340GM SUSP BTL As Ordered ONE; -E-Z-PAQUE 96% w/w SUSP 176GM BTL As Ordered ONE; +GABA-1172 PO; -GABA-282 PO; +OMEP40CA4 PO
[2024-01-17 08:06] VITALS: BP 143/97; O2SAT 99
== END ==
LOC: M PAL 07:55
PROVIDERS: ATTEND Nurse Practitioner Adult Health
DX: C25.2 Malignant neoplasm of tail of pancreas (principal); G89.3 Neoplasm related pain (acute) (chronic); G62.9 Polyneuropathy, unspecified; K59.00 Constipation, unspecified; R63.0 Anorexia; R11.2 Nausea with vomiting, unspecified; Z51.5 Encounter for palliative care; Z79.82 Long term (current) use of aspirin; Z79.891 Long term (current) use of opiate analgesic; Z79.899 Other long term (current) drug therapy; Z80.42 Family history of malignant neoplasm of prostate; Z86.59 Personal history of other mental and behavioral disorders; Z87.891 Personal history of nicotine dependence; Z90.5 Acquired absence of kidney; Z90.3 Acquired absence of stomach [part of]; Z90.410 Acquired total absence of pancreas; Z90.81 Acquired absence of spleen; Z90.89 Acquired absence of other organs; Z92.21 Personal history of antineoplastic chemotherapy; Z92.3 Personal history of irradiation

== ENCOUNTER → 2024-01-20 | Outpatient (CLI) | payer OTHER ==
[~2024-01-20] MED LIST changes: +GASTROGRAFIN SOLUTION 30ML As Ordered ONE; +ISOVUE-370 76% 100ML VIAL As Ordered ONE
== END ==
LOC: M RAD 09:35
PROVIDERS: ATTEND Dietitian, Registered
DX: C25.9 Malignant neoplasm of pancreas, unspecified (principal); K76.0 Fatty (change of) liver, not elsewhere classified; K76.89 Other specified diseases of liver; K80.20 Calculus of gallbladder without cholecystitis without obstruction; Z90.5 Acquired absence of kidney; R93.2 Abnormal findings on diagnostic imaging of liver and biliary tract; I25.10 Atherosclerotic heart disease of native coronary artery without angina pectoris; Z95.828 Presence of other vascular implants and grafts; J47.9 Bronchiectasis, uncomplicated
CPT/HCPCS: 71260; 74177; Q9963; Q9967

== ENCOUNTER → 2024-02-09 | Outpatient (CLI) | payer OTHER ==
[~2024-02-09] VITALS: Ht 172.7 cm; Wt 68.5 kg
[~2024-02-09] MED LIST changes: -GASTROGRAFIN SOLUTION 30ML As Ordered ONE; -ISOVUE-370 76% 100ML VIAL As Ordered ONE
[2024-02-09 13:08] VITALS: BP 111/63; O2SAT 97
== END ==
LOC: M PAL 09:35
PROVIDERS: ATTEND Nurse Practitioner Adult Health
DX: C25.2 Malignant neoplasm of tail of pancreas (principal); G89.3 Neoplasm related pain (acute) (chronic); G62.9 Polyneuropathy, unspecified; K59.00 Constipation, unspecified; R63.0 Anorexia; Z51.5 Encounter for palliative care; Z79.82 Long term (current) use of aspirin; Z79.891 Long term (current) use of opiate analgesic; Z79.899 Other long term (current) drug therapy; Z80.42 Family history of malignant neoplasm of prostate; Z86.59 Personal history of other mental and behavioral disorders; Z87.891 Personal history of nicotine dependence; Z90.5 Acquired absence of kidney; Z90.3 Acquired absence of stomach [part of]; Z90.410 Acquired total absence of pancreas; Z90.81 Acquired absence of spleen; Z90.89 Acquired absence of other organs; Z92.21 Personal history of antineoplastic chemotherapy; Z92.3 Personal history of irradiation

== ENCOUNTER → 2024-03-16 | Outpatient (CLI) | payer OTHER | LOC: M PAL 14:44 | PROVIDERS: ATTEND Family Medicine | DX: Z51.5 Encounter for palliative care (principal); C25.2 Malignant neoplasm of tail of pancreas; G89.3 Neoplasm related pain (acute) (chronic); R11.0 Nausea; R06.6 Hiccough; Z92.21 Personal history of antineoplastic chemotherapy; Z92.3 Personal history of irradiation; Z79.82 Long term (current) use of aspirin; Z79.52 Long term (current) use of systemic steroids; Z79.899 Other long term (current) drug therapy; Z79.891 Long term (current) use of opiate analgesic ==

== ENCOUNTER → 2024-04-24 | Outpatient (CLI) | payer OTHER ==
[~2024-04-24] VITALS: Ht 172.7 cm; Wt 71.7 kg
[~2024-04-24] MED LIST changes: +MORP1TAB20 PO
[2024-04-24 13:32] VITALS: BP 145/91; O2SAT 100
== END ==
LOC: M PAL 13:15
PROVIDERS: ATTEND Family Medicine
DX: Z51.5 Encounter for palliative care (principal); C25.2 Malignant neoplasm of tail of pancreas; R52 Pain, unspecified; R06.6 Hiccough; Z92.21 Personal history of antineoplastic chemotherapy; Z92.23 Personal history of estrogen therapy; Z79.82 Long term (current) use of aspirin; Z79.899 Other long term (current) drug therapy

== ENCOUNTER → 2024-05-10 | Outpatient (CLI) | payer OTHER ==
[~2024-05-10] MED LIST changes: +AZIT-12 PO; +ISOVUE-370 76% 100ML VIAL ONE
== END ==
LOC: M PLAIMG 11:38
PROVIDERS: ATTEND Nurse Practitioner Women's Health
DX: C25.9 Malignant neoplasm of pancreas, unspecified (principal)

== ENCOUNTER → 2024-05-31 | Outpatient (CLI) | payer OTHER ==
[~2024-05-31] MED LIST changes: -ISOVUE-370 76% 100ML VIAL ONE
== END ==
LOC: M ONCR 14:49
PROVIDERS: ATTEND General Practice
DX: C79.89 Secondary malignant neoplasm of other specified sites (principal); C25.2 Malignant neoplasm of tail of pancreas; C78.7 Secondary malignant neoplasm of liver and intrahepatic bile duct; Z90.5 Acquired absence of kidney; Z90.81 Acquired absence of spleen; Z90.410 Acquired total absence of pancreas; Z90.49 Acquired absence of other specified parts of digestive tract; F17.290 Nicotine dependence, other tobacco product, uncomplicated; Z79.82 Long term (current) use of aspirin; Z79.52 Long term (current) use of systemic steroids; Z79.891 Long term (current) use of opiate analgesic; Z79.899 Other long term (current) drug therapy; Z92.21 Personal history of antineoplastic chemotherapy

== ENCOUNTER 2024-06-18 12:46 | Outpatient (RCR) | payer OTHER ==
[2024-06-18] MEDS ORDERED: MORP1TAB21 PO (15:14)
[2024-06-18] MEDS ORDERED: MORP15TA2 PO (15:14)
== END 2024-06-25 ==
LOC: M ONCR 12:46
PROVIDERS: ATTEND General Practice
DX: Z51.0 Encounter for antineoplastic radiation therapy (principal); C25.2 Malignant neoplasm of tail of pancreas

== ENCOUNTER → 2024-07-02 | Outpatient (CLI) | payer OTHER ==
[~2024-07-02] VITALS: Ht 172.7 cm; Wt 73.3 kg
[2024-07-02 14:45] VITALS: BP 116/69; O2SAT 100
== END ==
LOC: M PAL 14:33
PROVIDERS: ATTEND Physician Assistant
DX: Z51.5 Encounter for palliative care (principal); C25.2 Malignant neoplasm of tail of pancreas; Z92.21 Personal history of antineoplastic chemotherapy; Z92.3 Personal history of irradiation; Z79.891 Long term (current) use of opiate analgesic; Z79.899 Other long term (current) drug therapy; Z79.82 Long term (current) use of aspirin

== ENCOUNTER → 2024-07-04 | Outpatient (POV) | payer OTHER ==
[~2024-07-04] VITALS: Ht 172.7 cm; Wt 72.7 kg
[2024-07-04 13:10] VITALS: BP 110/60; O2SAT 97
== END ==
LOC: M IRPOV 12:55
PROVIDERS: ATTEND Radiology Diagnostic Radiology
DX: C78.7 Secondary malignant neoplasm of liver and intrahepatic bile duct (principal); C79.89 Secondary malignant neoplasm of other specified sites; C25.0 Malignant neoplasm of head of pancreas; Z79.82 Long term (current) use of aspirin; Z79.891 Long term (current) use of opiate analgesic; Z79.899 Other long term (current) drug therapy; Z80.42 Family history of malignant neoplasm of prostate; Z82.49 Family history of ischemic heart disease and other diseases of the circulatory system; Z90.49 Acquired absence of other specified parts of digestive tract; Z90.5 Acquired absence of kidney; Z92.21 Personal history of antineoplastic chemotherapy; Z92.3 Personal history of irradiation

== ENCOUNTER → 2024-07-17 | Outpatient (CLI) | payer OTHER ==
[~2024-07-17] MED LIST changes: +ASPI81TA26 PO; +FERR325T3 PO
== END ==
LOC: M ONCR 11:35
PROVIDERS: ATTEND General Practice
DX: C79.2 Secondary malignant neoplasm of skin (principal); R11.2 Nausea with vomiting, unspecified; T45.1X5A Adverse effect of antineoplastic and immunosuppressive drugs, initial encounter; Z92.3 Personal history of irradiation

== ENCOUNTER 2024-07-19 10:43 | Inpatient (IN) | payer OTHER ==
[~2024-07-19] VITALS: Ht 172.7 cm; Wt 65.9 kg
[~2024-07-19 10:43] MED LIST changes: -ASPI81TA26 PO
[2024-07-19] MEDS ORDERED: OMEP40CA4 PO (13:27)
[2024-07-19] MEDS ORDERED: ONDA-284 PO (13:27)
[2024-07-19] MEDS ORDERED: OLAN1TAB16 PO (13:27)
[2024-07-19] MEDS ORDERED: BACL10TA2 PO (13:27)
[2024-07-19] MEDS ORDERED: MORP30TASA PO (13:27)
[2024-07-19] MEDS ORDERED: MORP15TA2 PO (13:27)
[2024-07-19] MEDS ORDERED: PROC10TA5 PO (13:27)
[2024-07-19] MEDS ORDERED: LISI5TAB11 PO (13:27)
[2024-07-19] MEDS ORDERED: ASPI81TA26 PO (13:27)
[2024-07-19] MEDS ORDERED: FERR325T3 PO (13:27)
[2024-07-19] MEDS ORDERED: MORP1TAB21 PO (13:27)
[2024-07-19] MEDS ORDERED: HOME MED LIST COMPLETE! XX SCH (13:30)
[2024-07-19] MEDS: NS (Normal Saline) 0.9% 1,000 ML IV ONE (13:53)
[2024-07-19] MEDS: cefTRIAXone SOD 2 GM in DEXTROSE 5% (D5W) ADV/MINI-BAG 50 ML IV ONE (13:53)
[2024-07-19 14:00] LABS: CK-MB VALUE MASS 16.5 NG/ML (<3.6)
[2024-07-19 14:15] LABS: KETONE, URINE AUTO RFX NEGATIVE (NEGATIVE); LEUKOCYTE ESTERASE UR AUTO RFX NEGATIVE (NEGATIVE); NITRITE, URINE AUTO RFX NEGATIVE (NEGATIVE); RBC, URINE AUTO RFX 0 /HPF (0-3); SQUAM EPITHELIAL CELL UR AURFX 0 /HPF (0-6); WBC, URINE AUTO RFX 1 /HPF (0-3)
[2024-07-19 14:16] LABS: MB/CK RELATIVE INDEX 0.6 (< OR =4)
[2024-07-19] MEDS ORDERED: cefTRIAXone SOD 2 GM in DEXTROSE 5% (D5W) ADV/MINI-BAG 50 ML IV ONE (14:30)
[2024-07-19] MEDS ORDERED: HYDROMORPHONE HCL 0.5 MG/ 0.5 ML SYRINGE IV PRN (14:45)
[2024-07-19] MEDS ORDERED: ONDANSETRON 4MG 2ML VIAL IV PRN (14:45)
[2024-07-19] MEDS ORDERED: PILL CUTTER 1 EACH XX PRN (15:40)
[2024-07-19 16:09] LABS: PROCALCITONIN 0.23 ng/ml
[2024-07-19] MEDS: NS (Normal Saline) 0.9% 1,000 ML IV SCH (16:35)
[2024-07-19] MEDS: GABAPENTIN 300 MG CAP PO SCH (16:35)
[2024-07-19] MEDS: OLANZapine 5 MG TAB PO SCH (21:28)
[2024-07-19] MEDS: HEPARIN SOD (PORCINE) 5000UNITS/ML 1ML VIAL/SYRINGE SC SCH (21:29)
[2024-07-19] MEDS: HYDROMORPHONE HCL 0.5 MG/ 0.5 ML SYRINGE IV PRN (21:30)
[2024-07-20 02:52] VITALS: BP 106/64; TEMP 99.4; O2SAT 93
[2024-07-20 06:00] LABS: HEMATOCRIT 22.6 % (42.0-52.0); MEAN CORPUSCULAR HGB CONC 31.9 g/dl (32.0-36.5); MEAN CORPUSCULAR VOLUME 78.5 fl (80.0-96.0); PLATELET COUNT, AUTOMATED 400 10^3/uL (150-450); RED BLOOD COUNT 2.88 10^6/uL (4.30-6.10); WHITE BLOOD COUNT 13.4 10^3/uL (4.0-10.0)
[2024-07-20 06:01] LABS: HEMOGLOBIN 7.2 g/dl (13.5-17.5)
[2024-07-20 06:56] LABS: CPK CREATINE PHOSPHOKINASE 1294 U/L (46-171)
[2024-07-20 06:59] LABS: ALBUMIN 2.3 G/DL (3.2-5.2); ALKALINE PHOSPHATASE 133 U/L (40-129); ALT/SGPT 32 U/L (7.0-40); AST/SGOT 65 U/L (<34); BILIRUBIN,TOTAL < 0.2 MG/DL (0.3-1.2); BLOOD UREA NITROGEN 42 MG/DL (9-23); CALCIUM LEVEL 7.8 MG/DL (8.5-10.1); CARBON DIOXIDE LEVEL 25 MMOL/L (20-31); CHLORIDE LEVEL 110 MMOL/L (98-107); CREATININE FOR GFR 1.49 MG/DL (0.70-1.30); GLOMERULAR FILTRATION RATE 55.4 (>56); GLUCOSE, FASTING 118 MG/DL (60-100); POTASSIUM SERUM 4.6 MMOL/L (3.5-5.1); SODIUM LEVEL 140 MMOL/L (136-145); TOTAL PROTEIN 4.8 G/DL (5.7-8.2)
[2024-07-20 08:00] VITALS: BP 156/94; TEMP 98.2; O2SAT 97
[2024-07-20] MEDS: OMEPRAZOLE 20MG CAP PO SCH (09:00)
[2024-07-20] MEDS: FERROUS SULFATE 325MG TAB PO SCH (09:00)
[2024-07-20 12:22] LABS: BASO % 0.3 % (0.0-1.0); EOS # 0.2 10^3/uL (0.0-0.5); EOS % 1.7 % (0.0-3.0); HEMATOCRIT 23.9 % (42.0-52.0); HEMOGLOBIN 7.4 g/dl (13.5-17.5); LYMPH # 0.3 10^3/uL (1.5-5.0); LYMPH % 2.2 % (24.0-44.0); MEAN CORPUSCULAR HEMOGLOBIN 24.4 pg (27.0-33.0); MEAN CORPUSCULAR VOLUME 78.9 fl (80.0-96.0); MONO % 21.4 % (2.0-8.0); NEUTROPHILS % 73.3 % (36.0-66.0); PLATELET COUNT, AUTOMATED 438 10^3/uL (150-450); RED BLOOD COUNT 3.03 10^6/uL (4.30-6.10); WHITE BLOOD COUNT 13.6 10^3/uL (4.0-10.0)
[2024-07-20 13:06] LABS: MONO # 2.9 10^3/uL (0.0-0.8)
[2024-07-20 14:00] VITALS: BP 117/58; TEMP 99.5; O2SAT 93
[2024-07-20 20:36] VITALS: BP 143/78; TEMP 99.1; O2SAT 96
[2024-07-20 23:20] VITALS: BP 134/76; TEMP 98.8; O2SAT 93
[2024-07-21 03:42] VITALS: BP 144/82; TEMP 98; O2SAT 97
[2024-07-21 05:59] LABS: BASO # 0.1 10^3/uL (0.0-0.2); BASO % 0.4 % (0.0-1.0); EOS # 0.7 10^3/uL (0.0-0.5); EOS % 5.5 % (0.0-3.0); HEMATOCRIT 22.7 % (42.0-52.0); HEMOGLOBIN 7.1 g/dl (13.5-17.5); LYMPH # 0.5 10^3/uL (1.5-5.0); LYMPH % 4.2 % (24.0-44.0); MEAN CORPUSCULAR HEMOGLOBIN 24.4 pg (27.0-33.0); MEAN CORPUSCULAR HGB CONC 31.3 g/dl (32.0-36.5); NEUTROPHILS # 6.8 10^3/uL (1.5-8.5); PLATELET COUNT, AUTOMATED 476 10^3/uL (150-450); RED BLOOD COUNT 2.91 10^6/uL (4.30-6.10); WHITE BLOOD COUNT 11.8 10^3/uL (4.0-10.0)
[2024-07-21] MEDS: LevoFLOXacin 750 MG TABLET PO SCH (06:41)
[2024-07-21 06:42] LABS: MONO # 3.5 10^3/uL (0.0-0.8)
[2024-07-21 06:54] LABS: ALBUMIN 2.2 G/DL (3.2-5.2); BILIRUBIN,TOTAL 0.2 MG/DL (0.3-1.2); CALCIUM LEVEL 7.8 MG/DL (8.5-10.1); CREATININE FOR GFR 1.02 MG/DL (0.70-1.30); GLOMERULAR FILTRATION RATE 87.3 (>56); MAGNESIUM LEVEL 1.8 MG/DL (1.8-2.4); POTASSIUM SERUM 4.3 MMOL/L (3.5-5.1); TOTAL PROTEIN 4.7 G/DL (5.7-8.2)
[2024-07-21] MEDS ORDERED: MORPHINE SULFATE TAB IMM. REL. 15 MG PO PRN (07:30)
[2024-07-21 08:01] VITALS: BP 156/88; TEMP 98.5; O2SAT 97
[2024-07-21] MEDS: BACLOFEN 10 MG TAB PO PRN (08:16)
[2024-07-21] MEDS: MORPHINE SULFATE TAB EXT REL 30 MG PO SCH (08:17)
[2024-07-21] MEDS ORDERED: MORPHINE SULFATE TAB EXT REL 30 MG PO SCH (09:00)
[2024-07-21] MEDS ORDERED: LEVO75TAB PO (12:12)
[2024-07-21 12:15] VITALS: BP 156/84; TEMP 98.4; O2SAT 97
== END 2024-07-21 13:19 | disposition home or self-care (01) | DRG 469 ==
LOC: M ED 10:43 → M ED INP 14:43 → M PCU 07-20 02:34
PROVIDERS: ADMIT Internal Medicine; ATTEND Internal Medicine
DX: N17.9 Acute kidney failure, unspecified (principal); C25.9 Malignant neoplasm of pancreas, unspecified; M62.82 Rhabdomyolysis; D50.9 Iron deficiency anemia, unspecified; I10 Essential (primary) hypertension; E86.0 Dehydration; K21.9 Gastro-esophageal reflux disease without esophagitis; R74.01 Elevation of levels of liver transaminase levels; Z79.82 Long term (current) use of aspirin; Z79.891 Long term (current) use of opiate analgesic; Z92.21 Personal history of antineoplastic chemotherapy; Z92.3 Personal history of irradiation; Z79.899 Other long term (current) drug therapy

== ENCOUNTER → 2024-08-01 | Outpatient (CLI) | payer OTHER ==
[~2024-08-01] VITALS: Ht 172.7 cm; Wt 72.6 kg
[~2024-08-01] MED LIST changes: +ASPI81TA26 PO; +LEVO75TAB PO
[2024-08-01 14:50] VITALS: BP 148/87; O2SAT 95
== END ==
LOC: M PAL 14:25
PROVIDERS: ATTEND Physician Assistant
DX: Z51.5 Encounter for palliative care (principal); Z66 Do not resuscitate; C25.2 Malignant neoplasm of tail of pancreas; Z92.21 Personal history of antineoplastic chemotherapy; Z92.3 Personal history of irradiation; Z79.891 Long term (current) use of opiate analgesic; Z79.899 Other long term (current) drug therapy; Z79.82 Long term (current) use of aspirin